=== PATIENT | male | born 1960 | race Caucasian/White ===

== ENCOUNTER 2023-10-19 15:21 | Outpatient (RCR) | payer BC | END 2023-10-22 | disposition home or self-care (01) | LOC: PT | DX: M17.0 Bilateral primary osteoarthritis of knee (principal); Z96.653 Presence of artificial knee joint, bilateral ==

== ENCOUNTER 2023-10-23 08:00 | Outpatient (RCR) | payer BC | END 2023-11-22 | disposition home or self-care (01) | LOC: PT | DX: M17.0 Bilateral primary osteoarthritis of knee (principal); Z96.653 Presence of artificial knee joint, bilateral ==

== ENCOUNTER 2023-11-24 08:00 | Outpatient (RCR) | payer BC | END 2023-12-23 | disposition home or self-care (01) | LOC: PT | DX: M17.0 Bilateral primary osteoarthritis of knee (principal); Z96.653 Presence of artificial knee joint, bilateral ==

== ENCOUNTER 2023-12-24 08:00 | Outpatient (RCR) | payer BC | END 2024-01-11 17:00 | disposition home or self-care (01) | LOC: PT 08:00 | DX: M17.0 Bilateral primary osteoarthritis of knee (principal); Z96.653 Presence of artificial knee joint, bilateral ==